=== PATIENT | male | born 1975 | race Caucasian/White ===

== ENCOUNTER 2016-10-20 13:34 | Inpatient (IN) ==
--- NOTE | 2016-10-20 14:29 | Diag Imaging Result Document ---
PROCEDURE NAME: FOOT COMPLETE RIGHT - 10/20/2016 RIGHT FOOT THREE VIEWS: FINDINGS: There is severe injury to the midfoot. The distal tarsal bones are all dislocated laterally from the proximal tarsal bones. There are multiple tiny bone fragments arising from the tarsal bones. No fractures to the metatarsals or phalanges. IMPRESSION: Multiple fractures with multiple fragments arising from the tarsal bones with dislocation of the distal tarsal bones from the proximal tarsal bones.
[2016-10-20] MEDS ORDERED: ZOFRAN IM ONE (15:22)
[2016-10-20] MEDS ORDERED: MORPHINE IM ONE (15:22)
--- NOTE | 2016-10-20 15:28 | PROVIDER DOCUMENTATION ---
HPI-Musculoskeletal Pain/Inj - GENERAL Chief Complaint: Extremity Injury Stated Complaint: POSS BROKE FOOT Time Seen by Provider: 10/20/16 15:18 Source: patient - HX OF PRESENT ILLNESS-MUSKULOSKELTAL Nature of Presenting Problem: 41 yo male presents to ER with c/o injury to right foot. 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 Quality of Pain: reports: aching, throbbing Severity in ED: severe Onset/Duration: just prior to arrival Timing: still present Modifying Factors: improves with: movement (worsens), palpation (worsens) Any recent injury?: Yes Locality of Occurance: Home Similar Symptoms Previously?: No Recently seen or treated by another doctor?: No - LOWER EXTREMITY PAIN/INJURY Lower Extremities Pain: foot: right Context / Method of Injury: reports: direct blow Associated Symptoms: reports: numbness in legs/feet, tingling in legs/feet Review of Systems - Adult - REVIEW OF SYSTEMS - ADULT Constitutional: reports: no symptoms reported Eyes: reports: no symptoms reported Ears, Nose, Mouth & Throat: reports: no symptoms reported Cardiovascular: reports: no symptoms reported Respiratory: reports: no symptoms reported Gastrointestinal: reports: no symptoms reported Genitourinary: reports: no symptoms reported Musculoskeletal: reports: see HPI, bone pain, joint pain Integumentary: reports: no symptoms reported Neurological: reports: no symptoms reported Psychiatric: reports: no symptoms reported Endocrine: reports: no symptoms reported Hematologic/Lymphatic: reports: no symptoms reported Allergic/Immunologic: reports: no symptoms reported All Other Systems: Reviewed and Negative Past History - Adult - PAST MEDICAL HISTORY-ADULT Review of Records: reports: Old Records Reviewed, Nursing Assessment Review, Medications Reviewed, Social history reviewed & non-contributory. Major Childhood Illnesses: reports: denies history Cardiovascular: reports: denies history Respiratory: reports: denies history Gastrointestinal: reports: denies history Obstetrical/Gynecological: reports: denies history Genitourinary: reports: denies history Musculoskeletal: reports: denies history Neurological: reports: denies history Endocrine/Immune: reports: denies history Other Conditions: reports: denies history - PRIOR SURGERIES/PROCEDURES Surgical/Procedure History: reports: appendectomy - IMMUNIZATION STATUS Childhood Immunizations: See Nurse Assessment Flu Vaccine: See Nurse Assessment - FAMILY HISTORY Family History: reviewed, not pertinent - SOCIAL HISTORY Smoking: denies, non-smoker Alcohol Use Frequency: once a week (on weekends) Living Situation: family Physical Exam-Injury Related - Physical Exam-Injury Related Initial Vital Signs Reviewed: Yes General Appearance: appears well, alert, no apparent distress Eyes: PERRL/EOMI Head, Ears, Nose, Mouth & Throat: normocephalic/atraumatic Respiratory: no respiratory distress Cardiovascular: normal peripheral pulses Peripheral Pulses: dorsalis-pedis (R): 2+ Extremity: deformity (right foot), swelling (right foot), tenderness (right foot ) Integumentary: ecchymosis Neurologic: grossly normal Psych/Mental Status: normal mood/affect, normal thought content, normal thought process, oriented x 3 - Glascow Coma Score Best Eye Response ([place]): (4) open spontaneously Best Verbal Response ([place]): (5) oriented Best Motor Response ([place]): (6) obeys commands [place] Total: 15 Progress - PLAN OF CARE/RESULTS Progress/Plan/Lab Results: Vital Signs - 8 hr 10/20/16 13:50 10/20/16 15:23 Temperature 98.3 F Pulse Rate 77 76 Respiratory Rate 16 15 Blood Pressure 146/101 144/100 O2 Sat by Pulse Oximetry 97 98 Orders Category Date Time Status Admit - [facility] Routine AdmDCTranf 10/20/16 16:01 Ordered Activity - Strict Bedrest ORDERED Care 10/20/16 16:01 Active Saline Loc DIRECTED Care 10/20/16 16:01 Active Vital Signs Order ROUTINE Care 10/20/16 16:01 Active NPO Diet 10/20/16 16:04 Active FOOT COMPLETE RIGHT [RAD] Stat Exams 10/20/16 13:56 Completed 0.9% Sodium Chloride Inj [Ns] 1,000 ml Med 10/20/16 16:01 Active IV 100 mls/hr Morphine Med 10/20/16 15:22 Discontinued 4 mg IM NOW ONE Ondansetron [Zofran] Med 10/20/16 15:22 Discontinued 4 mg IM NOW ONE Transfer/Admit Order [TRANSFER] Routine Transfer 10/20/16 16:01 Completed 1545-Dr. Banegas called back and states that he consulted Dr. Garsia who said that he will require multiple surgeries and long recovery process. Dr. Banegas states that patient could stay here or be transferred to . up to patient. 1600-Discussed options with patient; he would like to stay here. Called Dr. Banegas back and notified of decision; he states that he plans to perform surgery this afternoon. - XRAY 1 XRAY: Right XRAY Study: Foot Impression: Abnormal (multiple fractures w/multiple fragments arising from the tarsal bones with dislocation of the distal tarsal bones from the proximal tarsal bones) XRAY Interpretation: Interpreted by Dr. Acevedo - CONSULTS/PCP/HOSPITALIST Notification #1 *Consult/PCP/Hospitalist*: Dr. 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 Gonzalez Time Discussed: 16:05 ( Hospitalist at ) Reason/Comments: keep NPO Consult Disposition: Admit Departure - Departure Time of Disposition Decision: 15:30 DIAGNOSIS: Foot fracture, right Qualifiers: Encounter type: initial encounter Fracture type: closed Qualified Code(s): S92.901A - Unspecified fracture of right foot, initial encounter for closed fracture Right foot injury Qualifiers: Encounter type: initial encounter Qualified Code(s): S99.921A - Unspecified injury of right foot, initial encounter Disposition: ADMITTED INPATIENT 09 Certified Medical Emergency: Emergent Condition: Fair
[2016-10-20] MEDS ORDERED: ZOFRAN IV PRN (16:40)
--- NOTE | 2016-10-20 17:15 | HISTORY AND PHYSICAL ---
CHIEF COMPLAINT: Foot pain. HISTORY OF PRESENT ILLNESS: This patient is a 41-year-old male who has no current medical active problems. He was cutting wood with his father and a large oak tree rolled over on his foot, he began having immediate pain. They were able to get the tree off his foot but he was unable walk before he came to the ER. ALLERGIES: No known drug allergies. MEDICATIONS: None. PAST MEDICAL HISTORY: No current active medical problems. REVIEW OF SYSTEMS: Denies any chest pain, palpitations. Denies any fevers, chills, denies any dysuria, frequency urgency, denies any hesitancy, denies skin rashes, weight loss or weight gain. FAMILY HISTORY: Noncontributory. SOCIAL HISTORY: Patient does not smoke or drink. Does not use any other illicit substances. He currently is employed, does not have a primary care physician. PHYSICAL EXAM: VITAL SIGNS: Temperature 98.3 degrees, pulse 77, respiratory 16, BP 144/101, saturations 98% on room air. GENERAL: Patient is awake, alert, oriented, pleasant to talk with male who is currently in no distress. Notes his pain is tolerable in his foot. HEENT: Normocephalic, atraumatic. HAVEN. NECK: Supple. CV: Regular rate. CHEST: Relatively clear, nonlabored, no wheezing. ABDOMEN: Soft nondistended, nontender. EXTREMITIES: Moves all extremities well. He has good distal pulses from his fracture. NEURO: No focal neurological changes. SKIN: Warm and dry. No rashes. LABS: Currently pending. These were not drawn in the ER. ASSESSMENT: 1. Multiple fractures of the tarsal bones and dislocation the distal tarsal bone. 2. Hypertension in a patient with no previous history of hypertension although he does not check his blood pressure at home with any regularity. 3. Pain control. PLAN: Will continue to watch patient's blood pressure, will treat symptomatically for pain, will admit to the hospital, consult ortho Dr. Banegas for a surgical opinion. cc: Johann Gonzalez MD
[2016-10-20] MEDS ORDERED: KEFZOL 1 GM/D5W 1 GM/50 ML IVPB IV ONE (17:48)
--- NOTE | 2016-10-20 18:21 | CONSULTATION ---
DATE OF CONSULTATION: 10/20/2016 CHIEF COMPLAINT: Right foot fracture-dislocation. HISTORY: Patient was working with some logs today when a large log rolled over on to his foot. He was found to have a fracture-dislocation of the midfoot. He was evaluated in [place] emergency department, counseled about the findings. After discussing the risks and benefits, the patient has been transferred to [facility] for closed reduction and percutaneous pinning. PAST MEDICAL HISTORY: None reported. PAST SURGICAL HISTORY: None. ALLERGIES: None. HOME MEDICATIONS: None. SOCIAL HISTORY: Social history does not smoke. 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 REVIEW OF SYSTEMS: He denies recent cold, cough, fevers, chills, chest pain, shortness of breath, dysuria, rash or other acute illness. EXAM: General: Pleasant male who is in no distress at my exam. HEENT: Conjunctivae pink. Mucous membranes are moist. Neck: Supple without JVD. Heart: Regular with a controlled rate. Lungs: His respirations are nonlabored. Abdomen: Soft and nontender. Extremities: Reveal right lower extremity with soft tissue swelling graded as moderate. There is no open fracture. Pulses are palpable. His toes were well perfused. No sign of acute compartment syndrome is noted. There is minimal pain to the ankle and calf area or knee area on the right lower extremity. Neurological: He is alert, oriented. ASSESSMENT AND PLAN: Right foot fracture-dislocation. I discussed the case with Dr. Moise Pinedo who is a foot and ankle specialist. We will plan for closed reduction and possible percutaneous pinning tonight. Place in a well-padded splint, elevate. Will observe him over the next day and a half for compartment syndrome of the foot. Keep him nonweightbearing. Dr. Pinedo will see him on Saturday and discuss more definitive plans with him from that point forward. I have explained to Mr. Long this is very serious injury. I have explained to him that these types of injuries likely require multiple surgeries. He could ultimately end up with a fusion. I explained to him that there is a risk of infection, blood clots, compartment syndrome, nonunion, limb ischemia, chronic gait disturbance, chronic pain. He understands there are other orthopedic, other medical and other anesthesia risks associated with surgery and we will plan to proceed with closed reduction, possible percutaneous pinning. cc: Yifan Banegas DO
[2016-10-20 18:23] LABS: HEMATOCRIT 44.5 % (42.0-52.0); HEMOGLOBIN 14.9 g/dL (14.0-18.0); MCH 31.8 PG (27-31); MCHC 33.5 g/dL (33-37); MCV 94.9 FL (81-99); MPV 11.2 FL (7.4-10.4); RBC 4.69 XMIL (4.7-6.1)
[2016-10-20] MEDS: NS 1,000 ML IV ONE ×2 (18:28→20:05)
[2016-10-20 18:31] LABS: INR 0.97; PROTIME 10.2 Seconds (9.2-11.7)
[2016-10-20 18:37] LABS: AGAP 14; ALBUMIN 4.2 g/dL (3.5-5.0); ALKALINE PHOSPHATASE 32 U/L (32-122); BUN 15 mg/dL (8-22); CALCIUM 8.3 mg/dL (8.8-10.2); CHLORIDE 99 mmol/L (98-107); COSMO 283; GOT 20 U/L (10-34); GPT 19 U/L (10-44); POTASSIUM 3.9 mmol/L (3.5-5.1); SODIUM 140 mmol/L (136-145); TCO2 27 mmol/L (25-35); TOTAL BILIRUBIN 0.53 mg/dL (0.20-1.00); TOTAL PROTEIN 7.4 g/dL (6.3-8.3)
[2016-10-20 18:56] LABS: CK INDEX 1.2 (0.0-2.5); CK-MB 3.7 ng/mL (0.0-5.0)
[2016-10-20] MEDS ORDERED: DEMEROL ONE (19:17)
[2016-10-20] MEDS ORDERED: DIPRIVAN 1% ONE (19:28)
--- NOTE | 2016-10-20 19:33 | OPERATIVE NOTE ---
PROCEDURE DATE: 10/20/2016 PREOP DIAGNOSIS: Right midfoot fracture dislocation. POSTOP DIAGNOSIS: Right midfoot fracture dislocation. PROCEDURE: Right midfoot closed reduction, application of a short-leg splint. SURGEON: Dr. Venkat Banegas. ANESTHESIA: General. IV FLUIDS: Lactated Ringer's. ESTIMATED BLOOD LOSS: None. COMPLICATION: None. BRIEF HISTORY: Patient who had a log roll over on his foot today with immediate injury and pain, inability to ambulate. He was seen at [facility] where he was found to have a midfoot fracture dislocation. After the patient was counseled extensively about the risks, benefits, and options and indications of a closed reduction, possible percutaneous pinning and need for additional surgeries, patient understood and wished to proceed. PROCEDURE IN DETAIL: The patient was taken to the operating room where a time-out sight verification procedure was performed. The right foot was identified as the site for surgery. No prep or drape was required. Once adequate anesthesia was achieved, traction and manipulation of the midfoot was performed. There was palpable reduction of the joint. C-arm x-ray was used to confirm the reduction. The foot was then held in place and a well-padded posterior splint was applied. The fracture remained stable. It was x-rayed post splint placement. It remained reduced. Patient was awakened and taken to recovery stable condition. Sponge, needle count correct x2. The patient tolerated procedure well. No complications. cc: Yifan Banegas DO
[2016-10-20] MEDS ORDERED: NS 1,000 ML ONE (19:43)
[2016-10-20] MEDS: MORPHINE IV PRN ×3 (20:11→23:47)
[2016-10-20] MEDS ORDERED: TORADOL IV SCH (21:30)
[2016-10-20] MEDS ORDERED: TORADOL IV PRN (23:08)
[2016-10-21] MEDS: MORPHINE IV PRN ×3 (01:56→06:04)
[2016-10-21] MEDS: DILAUDID IV PRN (11:02)
--- NOTE | 2016-10-21 14:01 | PROGRESS NOTE ---
DATE: 10/21/2016 SUBJECTIVE: Patient notes the pain in his foot that is controllable with his current medications. Denies any other complaints. OBJECTIVE: Vital signs: Temperature 98, pulse 50, respiratory 16, BP 138/79 to 182/93, saturation 97% on room air. General: Patient is awake, alert, oriented. He is currently in no respiratory distress. He is pleasant to talk with. Speech is regular. Memory is intact. Neck: Supple. CV: Regular rate. Chest: Relatively clear. Extremities: Moves all extremities well with the exception of the right lower extremity which currently is in an immobilization cast. ASSESSMENT AND PLAN: 1. Hypertension. Discussed with the patient that I do expect that he has high blood pressure. Although his major spikes were secondary to the pain, he certainly needs to continue to follow this up as an outpatient. Will not start medications currently. 2. Mild fractures of the metatarsal bones and dislocation of the distal tarsal bone. This has been surgically repaired and Dr. Banegas. He will continue to follow. Dr. Pinedo will see him in the a.m. for further decision on surgical intervention. cc: Johann Gonzalez MD
[2016-10-22] MEDS ORDERED: DECADRON ONE (10:19)
[2016-10-22] MEDS ORDERED: ANESTHESIA PB SET 88 IN 5742 ONE (10:19)
[2016-10-22] MEDS ORDERED: XYLOCAINE-MPF 2% ONE (10:19)
[2016-10-22] MEDS ORDERED: LR 1,000 ML ONE (10:19)
[2016-10-22] MEDS ORDERED: LABETALOL (DOSE) ONE (10:19)
[2016-10-22] MEDS ORDERED: ZOFRAN ONE (10:19)
[2016-10-22] MEDS: DILAUDID IV PRN (10:40)
--- NOTE | 2016-10-22 10:57 | Diag Imaging Result Document ---
PROCEDURE NAME: KONSTANTIN BAPTISTE W/O CONTRAST - 10/22/[address] dose reduction protocol was used. COMPARISON: X-rays from 10/20/2016. FINDINGS: There are severe, displaced fractures throughout the foot. The ankle and the talus appear intact. There is displaced fracture of the anterior process of the talus with subluxation and near dislocation of the calcaneocuboid joint. There is severe comminuted fracture of the lateral pole of the navicular. There is also minimally displaced fracture of the lateral cuneiform bone. There is near complete dislocation of the scaphoid-cuneiform joints. The cuneiforms are located laterally to their expected location, as is the cuboid. The metatarsals and phalanges appear intact. IMPRESSION: Fracture-dislocation of the foot, with essentially complete disruption of the mid tarsal joint. [facility]
[2016-10-22 11:25] VITALS: BP 152/81
--- NOTE | 2016-10-22 11:34 | PROGRESS NOTE ---
DATE: 10/22/2016 SUBJECTIVE: Mr. Long is lying in bed this morning. Pain is under control as far as the foot is concerned. OBJECTIVE: Right lower extremity exam: He has a splint that is clean, dry, and intact. He has good capillary refill to the toes. He has good sensation to the toes as well. A CT scan was reviewed which shows still subluxation of the midfoot through his fracture zone, lateral navicular fracture, and CC joint is subluxed as well and he has an anterior process calcaneus fracture. ASSESSMENT: Right midfoot dislocation status post closed reduction with multiple midfoot fractures. PLAN: I discussed with Mr. Long today that he will require some definitive fixation. I probably would wait until about that way we can get a little bit more swelling down. I know he is still just a little bit subluxed but he is not dislocated at this point. His pain is under control so will plan on doing this this . I will probably end up doing external fixation both medially and laterally and then either percutaneous or K-wire fixation and let him heal in. I am okay with him being discharged today and I would like to see him in my clinic this Saturday10/24/2016; that will be the day before we operate. cc: Moise Pinedo MD
--- NOTE | 2016-10-23 14:54 | Diag Imaging Result Document ---
PROCEDURE NAME: CHEST-2 VIEWS - 10/20/2016 SEATED AP AND LATERAL RADIOGRAPH OF THE CHEST: COMPARISON: None available. FINDINGS: Inspiration is suboptimal. The lungs are grossly clear. There is no definite pleural fluid collection. Cardiac silhouette and central vasculature are grossly unremarkable. IMPRESSION: Poor inspiration, but no definite acute pathology.
--- NOTE | 2016-11-03 19:00 | DISCHARGE SUMMARY ---
ADMISSION DATE: 10/20/2016 DISCHARGE DATE: 10/22/2016 FINAL DISCHARGE DIAGNOSES: 1. Right midfoot dislocation status post closed reduction with multiple midfoot fractures. 2. Hypertension. CONSULTATIONS REQUESTED DURING THIS HOSPITAL STAY: Orthopedic consultation with Dr. Jovel. PROCEDURES PERFORMED DURING THIS HOSPITAL STAY: Right midfoot closed reduction with application of a short-leg splint. HOSPITAL COURSE: Mr. Long is a 41-year-old male with a history of hypertension who presented to the ER after a log rolled over his right foot resulting in severe pain. Upon arrival to the ER a foot x-ray was done that revealed multiple fractures with multiple fragments arising from the tarsal bone as well as dislocation. Orthopedic Surgery was consulted and the patient was taken to the OR that same day at which time the patient underwent a right midfoot closed reduction. The patient was noted to have high blood pressure and was started on Norvasc. He was seen again by the Orthopedic surgeon who cleared him for discharge home with close followup in the orthopedic clinic. The patient was cleared for discharge home on 10/22/2016. DISCHARGE MEDICATIONS: 1. Norvasc 10 mg p.o. daily. 2. Mereta 5/325, 1 tab oral every 4 hours p.r.n. for pain. DISCHARGE DIET: Low-sodium diet. ACTIVITY: As tolerated. FOLLOWUP INSTRUCTIONS: The patient will need to follow up with Dr. Pinedo as scheduled by the Orthopedic Clinic. cc: Summer Andre MD
== END 2016-10-22 13:48 | disposition home or self-care (01) ==
LOC: P.ED 13:34 → SUATTDRO 16:30 → 4N 16:30
PROVIDERS: ATTEND Internal Medicine

== ENCOUNTER 2019-08-16 10:37 | Inpatient (IN) ==
[2019-08-16] MEDS ORDERED: ASPIRIN PO ONE (10:49)
[2019-08-16] MEDS ORDERED: LOVENOX 1 MG/KG SUBQ ONE (11:03)
[2019-08-16] MEDS ORDERED: CARDIZEM IV ONE (11:03)
[2019-08-16 11:15] LABS: BASO# 0.05 X1000 (0.0-0.2); BASO% 0.6 % (0.0-0.8); EOS# 0.24 X1000 (0.0-0.7); EOS% 2.9 % (0.0-10.0); HEMATOCRIT 45.3 % (42.0-52.0); HEMOGLOBIN 15.5 g/dL (14.0-18.0); IMM GRAN# 0.03 X1000 (0.0-0.04); IMM GRAN% 0.4 % (0.0-0.5); LYMPH# 1.01 X1000 (1.2-3.4); LYMPH% 12.1 % (20.5-51.1); MCH 32.2 PG (27-31); MCHC 34.2 g/dL (33-37); MCV 94.2 FL (81-99); MONO# 1.14 X1000 (0.11-0.59); MONO% 13.7 % (1.7-9.3); MPV 11.6 FL (7.4-10.4); NEUT# 5.85 X1000 (1.4-6.5); NEUT% 70.3 % (42.2-75.2); PLT 232 X1000 (130-400); RBC 4.81 XMIL (4.7-6.1); RDW 12.9 % (11.5-14.5); WBC 8.32 X1000 (4.8-10.8)
[2019-08-16 11:25] LABS: INR 1.19; PROTIME 15.7 Seconds (11.0-16.0)
[2019-08-16 11:26] LABS: PTT 20.4 Seconds (22.3-41.8)
--- NOTE | 2019-08-16 11:39 | Diag Imaging Result Doc PS360 ---
EXAM: CHEST-2 VIEWS 08/16/2019 HISTORY: tachycardia sob TECHNIQUE: PA and lateral chest COMMENT: There is some pleural fluid posteriorly on the right. There is ill-defined opacity in the infrahilar region of the right lower lobe. This is slightly worse than on 10/20/2016. The heart size is slightly enlarged and there is increased pulmonary vascularity. IMPRESSION: Right pleural effusion. Minimal pulmonary edema. Electronically signed by Warren Recinos 08/16/2019 11:37 AM
[2019-08-16 11:40] LABS: ESTIMATED GFR > 60
[2019-08-16] MEDS: CARDIZEM 100 MG/NS 100 MG/100 ML IVPB IV SCH ×2 (11:47→18:45)
[2019-08-16 11:49] LABS: AGAP 18; ALBUMIN 3.9 g/dL (3.5-5.0); ALKALINE PHOSPHATASE 95 U/L (32-122); BUN 12 mg/dL (8-22); CALCIUM 8.8 mg/dL (8.8-10.2); CHLORIDE 97 mmol/L (98-107); CK PROFILE 191 U/L (24-204); COSMO 282; CREATININE 0.6 mg/dL (0.7-1.2); GLUCOSE 275 mg/dL (70-104); GOT 53 U/L (10-34); GPT 30 U/L (10-44); POTASSIUM 4.4 mmol/L (3.5-5.1); SODIUM 136 mmol/L (136-145); TCO2 22 mmol/L (25-35); TOTAL PROTEIN 7.2 g/dL (6.3-8.3)
[2019-08-16 11:51] LABS: MAGNESIUM 0.9 mg/dL (1.5-2.7)
[2019-08-16] MEDS ORDERED: MAGNESIUM SULFATE 2 GM/S.W.I. 2 GM/50 ML IVPB IV ONE (11:52)
--- NOTE | 2019-08-16 12:04 | EKG Report ---
Test Performed on : 08/16/2019 10:55:34 AM Test Reason : tachycardia sob Blood Pressure : / mmHG Vent. Rate : 152 BPM Atrial Rate : 097 BPM P-R Int : 000 ms QRS Dur : 084 ms QT Int : 306 ms P-R-T Axes : 000 265 092 degrees QTc Int : 486 ms Atrial fibrillation. with rapid ventricular response. with premature ventricular or aberrantly conduc mana complexes. Right superior axis deviation Anterior infarct , age undetermined Abnormal ECG No previous ECGs available Unconfirmed Result
[2019-08-16 12:53] LABS: UR AMPHETAMINES QUAL NONE DETECTED (NONE DETECT); UR BARBITUATES QUAL NONE DETECTED (NONE DETECT); UR BENZODIAZEPIN QUAL NONE DETECTED (NONE DETECT); UR CANNABINOIDS QUAL NONE DETECTED (NONE DETECT); UR COCAINE QUAL NONE DETECTED (NONE DETECT); UR METHADONE QUAL NONE DETECTED (NONE DETECT); UR METHAMPHETAMINE QUAL NONE DETECTED (NONE DETECT); UR OPIATES QUAL NONE DETECTED (NONE DETECT); UR OXYCODONE QUAL NONE DETECTED (NONE DETECT); UR PCP QUAL NONE DETECTED (NONE DETECT); UR PROPOXYPHENE QUAL NONE DETECTED (NONE DETECT); UR TCA QUAL NONE DETECTED (NONE DETECT)
--- NOTE | 2019-08-16 13:12 | Diag Imaging Result Doc PS360 ---
EXAM: CT THORAX W/CONTRAST 08/16/2019 HISTORY: RLL mass TECHNIQUE: This exam was performed using automated exposure control, adjustment of mA or kV according to patient size, and/or use of iterative reconstruction technique. COMMENT: There are no previous studies available for comparison. There is some residual thymic tissue in the anterior mediastinum. There is subcarinal adenopathy. There is a right pleural effusion. There is ascites. The spleen is not enlarged. The liver is somewhat nodular in contour and the possibility of cirrhosis cannot be excluded. There is some compressive atelectasis in the right lower lobe. There is a 10 mm pleural-based nodule in the inferior medial right middle lobe on image 63. There is some patchy groundglass opacity in the right upper lobe. There are calcified granulomata in the superior segment of the left lower lobe. The regional skeleton is intact. IMPRESSION: 1. Right pleural effusion and ascites. 2. Cirrhosis. 3. Nonspecific pulmonary nodule in the right middle lobe. Minimal pneumonia in the right upper lobe. Electronically signed by Warren Recinos 08/16/2019 1:10 PM
--- NOTE | 2019-08-16 13:22 | PROVIDER DOCUMENTATION ---
This chart was entered by Khushboo Pryor Scribe, acting as scribe for Catalino Dunbar MD. HPI-Abdominal Pain/GI Problem - General Chief Complaint: Shortness of Breath Stated Complaint: ABD SWOLLEN / SOB Time Seen by Provider: 08/16/19 10:46 Source: patient Allergies/Adverse Reactions: Patient Allergies Allergy/AdvReac Type Severity Reaction Status Date / Time No Known Allergies Allergy Verified 12/07/16 10:08 - History of Present Illness-ABD Nature of Presenting Problems: Pt is a 44 yom who presents to the ED with a cc of swollen abd. Reports bloating of abd for 1 week. reports cough and intermittent sob. denies any fever, palpitations, or edema. reports alcohol use. Pt is tachy in ER. Abdominal Pain Onset Location: reports: generalized abdomen Pain Radiation: reports: no radiation Quality of Pain: reports: none Onset/Duration: reports: 1 week ago Timing: reports: still present Activities at Onset: reports: none Exposure to sick contacts?: No Modifying Factors: improves with: nothing Associated Symptoms: reports: cough, nausea ("gagging"), shortness of breath (intermittent) Last BM: unsure Similar Symptoms Previously?: Yes Recently seen or treated by another doctor?: No Review of Systems - Adult - REVIEW OF SYSTEMS - ADULT Constitutional: reports: no symptoms reported Eyes: reports: no symptoms reported Ears, Nose, Mouth & Throat: reports: no symptoms reported Cardiovascular: reports: no symptoms reported Respiratory: reports: see HPI, cough, shortness of breath (intermittent) Gastrointestinal: reports: see HPI, nausea ("gagging"), other (bloating) Genitourinary: reports: no symptoms reported Musculoskeletal: reports: no symptoms reported Integumentary: reports: no symptoms reported Neurological: reports: no symptoms reported Psychiatric: reports: no symptoms reported Endocrine: reports: no symptoms reported Hematologic/Lymphatic: reports: no symptoms reported Allergic/Immunologic: reports: no symptoms reported All Other Systems: Reviewed and Negative Past History - Adult - PAST MEDICAL HISTORY-ADULT Review of Records: reports: Old Records Reviewed, Nursing Assessment Review, Medications Reviewed, Social history reviewed & non-contributory. Major Childhood Illnesses: reports: denies history Cardiovascular: reports: denies history Respiratory: reports: denies history Gastrointestinal: reports: denies history Obstetrical/Gynecological: reports: denies history Genitourinary: reports: denies history Musculoskeletal: reports: denies history Neurological: reports: denies history Endocrine/Immune: reports: denies history Other Conditions: reports: denies history - PRIOR SURGERIES/PROCEDURES Surgical/Procedure History: reports: appendectomy - IMMUNIZATION STATUS Childhood Immunizations: See Nurse Assessment Flu Vaccine: See Nurse Assessment - FAMILY HISTORY Family History: reviewed, not pertinent - SOCIAL HISTORY Smoking: non-smoker Alcohol Use Frequency: every day Physical Exam-General - PHYSICAL EXAM-ADULT Initial Vital Signs Reviewed: No - CONSTITUTIONAL General Appearance: alert - EYES Eyes: pink conjunctivae - HEAD, EARS, NOSE, MOUTH & THROAT HENMT: normocephalic/atraumatic, moist mucous membranes - RESPIRATORY Respiratory: chest non-tender, lungs clear - CARDIOVASCULAR Cardiovascular: normal peripheral pulses, tachycardia. negative: regular rate, rhythm - GASTROINTESTINAL (ABDOMEN) Abdominal Exam: non tender, soft, distended (slight) - MUSCULOSKELETAL Extremity: normal range of motion, non-tender, normal inspection, no pedal edema - SKIN Integumentary: normal color, warm/dry - PSYCHIATRIC Psych/Mental Status: normal mood/affect, normal thought content, normal thought process, oriented x 3 Progress - PLAN OF CARE/RESULTS Progress/Plan/Lab Results: Vital Signs - 8 hr 08/16/19 10:41 Temperature 98.5 F Pulse Rate 149 H Respiratory Rate 20 Blood Pressure 142/99 O2 Sat by Pulse Oximetry 95 Orders Category Date Time Status Cardiac Monitoring DIRECTED Care 08/16/19 10:49 Active Oxygen Therapy- ED Nursing DIRECTED Care 08/16/19 10:49 Active Saline Loc NOW Care 08/16/19 10:49 Active CHEST-2 VIEWS [RAD] Stat Exams 08/16/19 10:49 Ordered CBC WITH ELECTRONIC DIFF [HEME] Stat Lab 08/16/19 11:01 Ordered CK PROFILE [SP CHEM] Stat Lab 08/16/19 11:01 Ordered COMPREHENSIVE METABOLIC PANEL [CHEM] Stat Lab 08/16/19 11:01 Ordered PRO B-NATRIURETIC PEPTIDE Stat Lab 08/16/19 11:01 Ordered PROTIME WITH INR [COAG] Stat Lab 08/16/19 11:01 Ordered PTT [COAG] Stat Lab 08/16/19 11:01 Ordered TROPONIN T HIGH SENSITIVITY Stat Lab 08/16/19 11:01 Ordered Aspirin Med 08/16/19 10:49 Discontinued 325 mg PO NOW ONE CP/SOB/Palp >45 yrs of Age Stat Oth 08/16/19 10:49 Ordered EKG [EKG] Stat Ther 08/16/19 10:49 Ordered Result Diagrams: 08/16/19 11:00 08/16/19 11:00 - EKG 1 Time of EKG reading by physician:: 10:57 EKG Read and Signed by:: Catalino Dunbar EKG Interpretation (*Must complete 3 of following elements*): Abnormal (anterior infarct, age undetermined) Rate: 152 Rhythm: AFIB w/ RVR or ACC [place]: right (superior axis deviation) QRS: normal ST Wave: normal Prior EKG Comparison: no prior EKG - XRAY 1 XRAY: Bilateral XRAY Study: Chest Impression: Abnormal, See EMR Report (EXAM: CHEST-2 VIEWS 08/16/2019 HISTORY: tachycardia sob TECHNIQUE: PA and lateral chest COMMENT: There is some pleural fluid posteriorly on the right. There is ill-defined opacity in the infrahilar region of the right lower lobe. This is slightly worse than on 10/20/2016. The heart size is slightly enlarged and there is increased pulmonary vascularity. IMPRESSION: Right pleural effusion. Minimal pulmonary edema. Electronically signed by Warren Recinos 08/16/2019 11:37 AM 08/16/19 1137 Interpreting Physician: Warren Recinos MD Dictated Date/Time: 08/16/19 1136 cc: Catalino Dunbar MD; None,PCP) - CONSULTS/PCP/HOSPITALIST Notification #1 *Consult/PCP/Hospitalist*: Snyder Time Discussed: 13:15 Consult Disposition: Will see in ED, Admit Departure - Departure Date of Disposition Decision: 08/16/19 Time of Disposition Decision: 10:50 DIAGNOSIS: Atrial fibrillation with rapid ventricular response, Hypomagnesemia, Pleural effusion, right Cirrhosis Qualifiers: Hepatic cirrhosis type: unspecified hepatic cirrhosis Ascites presence: with ascites Qualified Code(s): K74.60 - Unspecified cirrhosis of liver; R18.8 - Other ascites Ascites Qualifiers: Ascites type: other type Qualified Code(s): R18.8 - Other ascites Disposition: ADMITTED INPATIENT 09 Certified Medical Emergency: Emergent Condition: Good Referrals and Follow-Ups: None,PCP [Primary Care Provider] - - Critical Care Note This patient required my direct & personal management of CC.: Yes Total Time (mins): 35 Critical Care Statement: This patient required my direct personal management to treat or rule out processes, the absence of which, could potentiallly result in sudden, clinically significant life or limb threatening deterioration. Attestation - Physician/ COLE Attestation Patient care was provided by Advanced Practice Provider:: No The physician spent face to face time with patient:: Yes Advanced Practice Provider documentation review:: Supervising physician onsite and consulted in the evaluation and care of this patient. The physician did have a face to face encounter with the patient. This chart was documented by the indicated scribe, (Khushboo Pryor Scribe) and accurately reflects the services I performed and decisions made by me, Catalino Dunbar MD, as attested by the provider's signature.
[2019-08-16] MEDS ORDERED: ZOFRAN IV PRN (14:23)
[2019-08-16] MEDS: NS 1,000 ML IV SCH (14:30)
[2019-08-16] MEDS ORDERED: LOVENOX SUBQ ONE (14:30)
[2019-08-16] MEDS: ROCEPHIN 1 GM in NS 50 ML IV SCH (15:30)
[2019-08-16] MEDS: ZITHROMAX PO SCH (16:27)
--- NOTE | 2019-08-16 21:48 | HISTORY AND PHYSICAL ---
CHIEF COMPLAINT: Abdominal distention, abdominal pain. HPI: This is a 44-year-old gentleman who denies any prior past medical history, who presents to the emergency room complaining of abdominal distention and bloating for a week. He also reports cough and intermittent shortness of breath. He denies any fevers, chills, any nausea, vomiting, any black or bloody vomitus or stools. He does have a history of alcoholism. He does continue to drink daily although at this time he is not forthcoming with the amount he drinks. PAST MEDICAL HISTORY: Hypertension diagnosed a month prior. PAST SURGICAL HISTORY: Right midfoot external fixation with he had closed reduction, percutaneous pinning with left external fixation applied in October 2016 with external fixation removed in December 2016. ALLERGIES: No known drug allergies. SOCIAL HISTORY: He does drink alcohol daily. He denies any tobacco or illicit drug use. HOME MEDICATIONS: A list will be obtained by the nursing staff and once verified will review and restart as appropriate. REVIEW OF SYSTEMS: Discussed with the patient with pertinent positives stated in the HPI. He denied any syncope or dizziness, any palpitations, any chest pain, any vomiting, any diarrhea, constipation, black or bloody vomitus or stools, any hematuria, dysuria, frequency, urgency. PHYSICAL EXAMINATION: GENERAL: This is a 44-year-old gentleman who is sitting on the stretcher in the emergency room in no distress. VITAL SIGNS: Blood pressure is 108/71 with a heart rate of 92, respirations are 17, temperature is 98.5 degrees with O2 saturations 96 to 98 percent. HEENT: Pupils equal, round, react to light. EOMs are intact. Sclerae anicteric. HEENT: Head is normocephalic, atraumatic. Mucous membranes are moist. NECK: Supple with trachea midline. CARDIOVASCULAR: Irregularly irregular rate and rhythm. S1 and S2 are appreciated. Calves are nontender bilateral with peripheral pulses palpable x4 extremities. PULMONARY: Breath sounds are clear with no increased work of breathing noted. Chest rises and falls symmetric respiration. Chest wall is nontender to palpation. GASTROINTESTINAL: Abdomen is soft, it is distended, nontender with bowel sounds in all 4 quadrants. GENITOURINARY: No CVA or suprapubic tenderness. NEUROLOGIC: He is alert and oriented x3. SKIN: Warm and dry. LABS: WBC is 8.3 with hemoglobin 15.5, hematocrit 45.3, platelets of 232,000. INR is 1.19. Sodium 136, potassium 4.4, BUN 12, creatinine 0.6 with a glucose of 275. Magnesium is 0.9 with a total bilirubin of 1.6, AST of 53, ALT 30. Troponin is 22 and repeat is 25. TSH 1.16. Urine drug screen reveals none detected. EKG reveals atrial fibrillation with rapid ventricular response at a rate of 152. CT of the chest revealed right pleural effusion and ascites. The liver is nodular in contour. The possibility of cirrhosis cannot be excluded. Right pneumonia in the right upper lobe with a 10 mm nodule in the right middle lobe. He had some patchy ground-glass opacity in the right upper lobe. ASSESSMENT AND PLAN: 1. Atrial fibrillation with rapid ventricular response. The patient is on Cardizem and rate is controlled. We will transfer him to [facility] for Cardiology following. He will be placed in ICU. 2. Hypomagnesemia. This was replaced in the emergency room. Will recheck magnesium and replete tonight and then again in the morning. Replete as appropriate. 3. Hyperbilirubinemia. 4. Liver cirrhosis with ascites. This is a new diagnosis according to the patient. He will be NPO after midnight. We will check an abdominal ultrasound in the morning and consult Gastroenterology. 5. History of daily alcohol use. Will check a blood alcohol, monitor for any signs and symptoms of withdrawal. 6. Right upper lobe pneumonia. We will obtain blood cultures, antibiotic coverage of Rocephin and azithromycin. 7. 10 mm right middle lobe nodule on CT scan. 8. Hypertension. We will identify his medications and continue as appropriate. 9. Plan was discussed with Dr. Gonzalez. Further treatments pending hospital course. Will do Lovenox 1 mg/kg q.12 hours. Give gentle IV hydration 75 mL an hour. For PPI we will use Prilosec. Dictated by TAIWO Bagley for Johann Gonzalez MD cc: TAIWO Bagley MD
--- NOTE | 2019-08-16 23:23 | HISTORY AND PHYSICAL ---
ADDENDUM: Patient seen and examined by myself. Full note dictated and discussed with nurse practitioner. Patient presented to the hospital with new onset swelling of his abdomen. Notes that it has been going on for approximately a week. Denies any true palpitations. Does have alcohol use. In the ER, he was noted to be in atrial fibrillation RVR with heart rate 140-150. He has been placed on Cardizem. Blood pressures currently are stable. Heart rate is in the upper 90s. The patient also noted to have new onset cirrhosis and right upper lobe pneumonia. We are going to admit him to the hospital, attempt to wean off Cardizem as possible. We will ask GI to evaluate his cirrhosis. Further orders as needed. cc: Johann Gonzalez MD
[2019-08-17] MEDS ORDERED: LOVENOX SUBQ SCH (03:00)
[2019-08-17] MEDS: NS 1,000 ML IV SCH (03:55)
[2019-08-17] MEDS: PRILOSEC PO SCH ×2 (05:23→06:26)
[2019-08-17] MEDS: CARDIZEM 100 MG/NS 100 MG/100 ML IVPB IV SCH (05:23)
[2019-08-17 06:57] LABS: HEMATOCRIT 45.4 % (42.0-52.0); HEMOGLOBIN 14.6 g/dL (14.0-18.0); MCH 30.9 PG (27-31); MCHC 32.2 g/dL (33-37); MCV 96.2 FL (81-99); MPV 10.9 FL (7.4-10.4); RBC 4.72 XMIL (4.7-6.1); RDW 13.3 % (11.5-14.5); WBC 7.33 X1000 (4.8-10.8)
[2019-08-17 07:17] LABS: AGAP 16; ALB/GLOB RATIO 1.2; ALBUMIN 3.6 g/dL (3.5-5.0); ALKALINE PHOSPHATASE 81 U/L (32-122); BUN 14 mg/dL (8-22); CHLORIDE 96 mmol/L (98-107); COSMO 278; CREATININE 0.9 mg/dL (0.7-1.2); ESTIMATED GFR > 60; GLUCOSE 232 mg/dL (70-104); GOT 33 U/L (10-34); GPT 23 U/L (10-44); POTASSIUM 3.9 mmol/L (3.5-5.1); SODIUM 135 mmol/L (136-145); TCO2 23 mmol/L (25-35); TOTAL BILIRUBIN 1.76 mg/dL (0.20-1.00); TOTAL PROTEIN 6.5 g/dL (6.3-8.3)
[2019-08-17] MEDS: ZITHROMAX PO SCH (08:13)
--- NOTE | 2019-08-17 10:16 | Diag Imaging Result Doc PS360 ---
EXAM: US ABDOMEN-COMPLETE INDICATION: cirrhosis COMPARISON: None. FINDINGS: The gallbladder could not be identified by the customer service specialist, possibly because it is contracted. The common bile duct is normal in diameter. The liver echotexture is diffusely increased suggesting hepatic steatosis. No discrete hepatic mass is identified. There is a small amount of ascites tracking around the liver and there is a right pleural effusion. The portal vein is obscured. The pancreas is obscured. The visualized portion of the aorta and IVC are unremarkable. The spleen is unremarkable. The kidneys are grossly unremarkable. IMPRESSION: 1.Nonvisualization of the gallbladder, possibly because it is contracted. 2.Evidence of hepatic steatosis. 3.Small volume ascites and right pleural effusion. Electronically signed by Bryant Conde 08/17/2019 10:14 AM
--- NOTE | 2019-08-17 10:47 | EKG Report ---
Test Performed on : 08/17/2019 10:12:06 AM Test Reason : afib Blood Pressure : / mmHG Vent. Rate : 087 BPM Atrial Rate : 115 BPM P-R Int : 000 ms QRS Dur : 088 ms QT Int : 432 ms P-R-T Axes : 000 018 110 degrees QTc Int : 519 ms Atrial fibrillation. Low voltage QRS T wave abnormality, consider anterolateral ischemia Prolonged QT Abnormal ECG When compared with ECG of 16-AUG-2019 10:55, (Unconfirmed) Vent. rate has decreased BY 65 BPM QRS axis shifted right Inverted T waves have replaced nonspecific T wave abnormality in Anterolateral leads Confirmed by Nilton JOSE, Rob Loomis ([id number]) on 08/17/2019 4:15:44 PM
[2019-08-17] MEDS ORDERED: LOPRESSOR PO ONE (11:59)
--- NOTE | 2019-08-17 12:43 | CONSULTATION ---
DATE OF CONSULTATION: 08/17/2019 IMPRESSION: 1. Atrial fibrillation of unknown duration. The patient has a history of significant daily alcohol use, and atrial fibrillation may potentially be related to this. He also may very well have obstructive sleep apnea. 2. Obesity. 3. Elevated blood pressure in the past. 4. 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 The patient actually presented with a complaint of abdominal swelling, but no cardiovascular symptoms. RECOMMENDATIONS: 1. Continue beta uzma, metoprolol. 2. Although CHADS-VASC score is limited, I favor at least short term anticoagulation. We will initiate Eliquis. 3. ELOISE/cardioversion discussed and considered with the patient. He expressed preference to hold off on this given some potential that atrial fibrillation will go away if he discontinues alcohol use. Therefore, we will follow the patient in the office, and if atrial fibrillation persists, reconsider ELOISE cardioversion. 4. The patient would benefit from screening for obstructive sleep apnea. 5. Cessation of alcohol use strongly advised. HISTORY: This 44-year-old white male with past history of daily alcohol use, consuming 8 to 10 beers daily, and obesity, as well as possible hypertension in the past, was admitted after he presented with complaint of increased abdominal swelling. He was noted to be in atrial fibrillation with elevated heart rate. He is totally unaware of his atrial arrhythmia and denies any chest discomfort or dyspnea or palpitations. He relates he only has been having some increased abdominal swelling without peripheral edema, and this is why came to seek medical evaluation. He has history of some elevated blood pressure in the past and was treated with antihypertensive medications for couple months, but no longer takes blood pressure medications. He does have history of prominent snoring. 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 PAST MEDICAL HISTORY: 1. Obesity. 2. Elevated blood pressure in the past. Patient treated for hypertension for a period of time, but is no longer taking any hypertensive medications. PAST SURGICAL HISTORY: Fracture of right midfoot requiring external fixation after closed reduction. ALLERGIES: He has no known drug allergies. MEDICATIONS: He is on no medications prior to admission. 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 He drinks 8 to 10 beers daily. He does not smoke. He is single. FAMILY HISTORY: Noncontributory. REVIEW OF SYSTEMS: Pulmonary: Noteworthy for prominent snoring, but otherwise negative. Gastrointestinal: Noteworthy for abdominal swelling, but otherwise negative. Constitutional: Negative. Other Systems: The remainder of review of systems negative/noncontributory with 14 total systems reviewed. PHYSICAL EXAMINATION: General: Reveals an obese adult white male in no distress on room air. Vital Signs: Blood pressure 130/92, heart rate 81 and irregular, oxygen saturation 95%. HEENT: Extraocular movements intact. Mucous membranes are moist. Neck: Supple. No jugular venous distention. There are no carotid bruits. Chest: Clear to auscultation bilaterally. Cardiac: Reveals an irregular rate and rhythm without appreciable murmur, rub, or gallop. Abdomen: Soft. Bowel sounds are normal. Extremities: Without edema. Neurologic: Alert and fully oriented. Speech is fluent. Moves all 4 extremities equally well. Skin: Warm and dry. Psychiatric: Reveals mood to be appropriate. PERTINENT DATA: A 12-lead EKG demonstrates atrial fibrillation, low voltage QRS and nonspecific T- wave abnormality. LABORATORY DATA: Includes a white blood cell count of 7.33, hematocrit 45.4, hemoglobin 14.6, platelet count 187,000. Sodium 135, potassium 3.9, chloride 96, carbon dioxide 23. BUN 14, creatinine 0.9, glucose 232, magnesium 1.5, bilirubin 1.76. AST initially 53 with followup AST of 33, ALT initially 30 with followup ALT of 23. Troponin T high sensitivity 25. cc: Codey Booth MD
--- NOTE | 2019-08-17 13:23 | GASTROENTEROLOGY CONSULTATION ---
DATE: 08/17/2019 REASON FOR CONSULTATION: Cirrhosis and ascites. HISTORY OF PRESENT ILLNESS: Mr. Long is a 44-year-old, male with a past medical history of hypertension, who presented to Emergency yesterday morning with complaints of abdominal pain, hurting when he coughs. He described his pain as 3/10 and said it was a sharp pain. He had nausea and vomiting on Saturday morning, and now he c/o of only nausea but not vomiting. His bowel movements are regular. He complained of shortness of breath, but denied any fever or chills. The patient is saying that this has been going on for a week onwards and he felt like his abdomen is getting more and more distended and he feels very tight. He has denied noticing any blood in his stools or blood in his vomit. The patient does have a history of drinking 5 to 6 beers a day, and he takes ibuprofen as and when needed. PAST MEDICAL HISTORY: Hypertension. PAST SURGICAL HISTORY: Appendectomy and right ankle repair. FAMILY HISTORY: Positive for diabetes and emphysema. ALLERGIES: No known drug allergies. SOCIAL HISTORY: The patient is single. He drinks alcohol, but has denied any tobacco or illicit drug use. HOME MEDICATIONS: Leeu-pie-ycbrykb ibuprofen. REVIEW OF SYSTEMS: As per HPI. Otherwise, 12 point review of system is negative. PHYSICAL EXAMINATION: Vital Signs: Temperature 98.2 degrees, pulse 88, respirations 25, blood pressure 114/80, oxygen saturation 91% on room air. The patient's weight is 205 pounds. BMI is 34.2 kg/m2. General: He is alert, oriented x3, in no acute distress. Answering questions appropriately. HEENT: Pale conjunctivae. No icterus. PERRL. Neck: Supple. Lungs: Clear to auscultation. Cardiovascular: Regular rate and rhythm. Abdomen: Firm, distended, obese, tender in the epigastric area. Extremities: No clubbing, no cyanosis, no edema. Pedal pulses 2+ present bilaterally. Neurologic: Alert, oriented x3. Nonfocal. Cranial nerves 2-12 grossly intact. LABORATORY DATA: WBCs 7.33, RBCs 4.72, hemoglobin is 14.6, hematocrit is 45.4, platelet count is 187. PT 15.7, INR is 1.19. Sodium 135, potassium 3.9, chloride 96, carbon dioxide 23, anion gap 16. BUN 14, creatinine is 0.9, glucose is 232, calcium is 8.0. Total bilirubin is 1.76, AST 33, ALT 23, alkaline phosphatase is 81, albumin is 3.6. IMAGING: Abdominal ultrasound has shown nonvisualization of the gallbladder, possibly because it is contracted. Evidence of hepatic steatosis, small volume ascites and right pleural effusion. Chest CT has shown right pleural effusion and ascites, cirrhosis, nonspecific pulmonary nodule in the right middle lobe. Minimal pneumonia in the right upper lobe. Chest x-ray has shown right pleural effusion. Minimal pulmonary edema. IMPRESSION AND PLAN: Cirrhosis Ascites A-fib Hypertension Alcoholism PLAN: Mr. Long is a 44-year-old, male with a history of hypertension. Gastroenterology has been consulted for his cirrhosis and ascites. We have ordered a chronic liver disease workup for the patient. Patient needs to start low sodium diet <2g/24 hours. The patient is currently on Prilosec 40 mg oral daily. He is on Zithromax 500 mg oral daily. The patient can follow us up in 3 to 4 weeks as an outpatient for follow up of chronic Liver disease workup, We will sign off for now. This plan was discussed with Dr. Lawson. Thank you for your cosult. Please call us for any further questions or concerns. Dictated by TAIWO Norton for Gennaro Lawson MD cc: Gennaro Lwason MD I have seen and examined the patient myself and I agree with the above plan of care. Please call with any questions or concerns. MTDD
--- NOTE | 2019-08-17 14:04 | ECHO REPORT ---
ORDER DATE: 08/17/2019 INDICATION: Atrial fib. FINDINGS: 1. The right atrium is enlarged. 2. Mild tricuspid regurgitation. RV systolic pressure of 39. 3. The right ventricle is enlarged with reduction in RV systolic function. 4. Trace pulmonic insufficiency. 5. Severe left atrial enlargement with a volume index of 47. 6. No mitral valve prolapse. There is moderate and possibly severe mitral regurgitation. This is an eccentric jet that is not well seen. 7. The left ventricle appears normal in size with an end-diastolic dimension of 4.8 cm. Normal wall thicknesses with a posterior and interventricular septal wall thickness of 1.0 and 0.9 cm respectively. Severe reduction in LV systolic function. Estimated ejection fraction is in the 15 to 20 percent range with severe global hypokinesis. 8. Aortic valve opens well. There is no evidence of stenosis or insufficiency. 9. Aorta appears normal in visualized segments. 10. There is a very trace predominantly posterior pericardial effusion, as well as a pleural effusion present. 11. The patient appears to be in atrial fibrillation. cc: MD Nino Das MD
[2019-08-17] MEDS: ROCEPHIN 1 GM in NS 50 ML IV SCH (15:43)
[2019-08-17] MEDS ORDERED: COZAAR PO ONE (16:55)
[2019-08-17] MEDS ORDERED: VANCOMYCIN IV PER PHARMACY MISC SCH (17:15)
[2019-08-17] MEDS ORDERED: VANCOMYCIN 2 GM in NS 500 ML IV ONE (18:00)
--- NOTE | 2019-08-17 19:36 | PROGRESS NOTE ---
DATE: 08/17/2019 SUBJECTIVE: I have seen and examined Mr. Long today. Mr. Long is a 44-year-old gentleman who is known to be hypertensive. According to him, he has been told in the past, but he was not on any medication. Presented to [place] because of abdominal distention, was found to be in atrial fibrillation with RVR, and was transferred to [facility] yesterday for higher level of care. I understand in the ER he was found to have heart rate of 140 to 150. This morning, he refers to be doing better. No shortness of breath and no chest pain. The patient's activity level, for the most part, has not changed. OBJECTIVE: Current vital signs: Blood pressure is 114/80, pulse of 88, respiration is 25, temperature is 98.2 degrees, and patient is saturating 95%. General: Mr. Long is a 44-year- old, obese, gentleman. He is in bed. Does not seem to be in any cardiopulmonary distress. HEENT: Mucosa is pink and moist. Anicteric. Acyanotic. Neck: Supple. Positive JVD. Chest: Air entry was bilaterally reduced. I did not hear any crackles or wheezing. Cardiovascular: Irregularly irregular, but rate controlled. No murmurs, no rubs, no gallops. GI: Abdomen was soft. It is distended, but nontender. Bowel sounds present. Extremities: No pedal edema. 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 No focal deficit. LABORATORY DATA: CBC is normal. Chemistry is also reviewed. Sodium is 135. Rest of chemistry is unremarkable. So far, patient's blood cultures 1/2 positive for gram-positive cocci. IMAGING STUDIES: A chest x-ray did show a right pleural effusion and minimal pulmonary edema. A CAT scan of the chest showed right pleural effusion and ascites, cirrhosis, nonspecific nodule, and there was a minimum pneumonia in the right upper lobe. Abdomen ultrasound shows evidence of hepatic steatosis, cirrhotic. ASSESSMENT: 1. Atrial fibrillation of acute onset with rapid ventricular response on presentation. The patient was started on Cardizem at [place]. He is currently rate controlled. He has been transitioned to metoprolol by Cardiology. 2. Severe systolic dysfunction, with ejection fraction of 15% to 20%, associated with severe global hypokinesis. 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 The patient has been advised on alcohol cessation. We started him on thiamine, folate, and multivitamins. Cardiology has also evaluated him. We have also started Mr. Long on losartan as well as spironolactone. 3. Hypertension. The patient has been started on low-dose losartan. 4. Eliquis anticoagulation was started by Cardiology. Obviously, patient has higher cardiovascular score for embolic phenomena. His CHADS/VASc score is at least 2, with 1 for congestive heart failure, 1 for hypertension, and he surely needs to be on a blood thinner. 5. Cirrhosis of the liver noted on CAT scan. The ultrasound, however, just shows hepatic steatosis. We think this is all alcohol induced. The patient has been counseled. GI has also evaluated him. Other possible etiology testing has been ordered. 6. Suspected obstructive sleep apnea. Patient has been advised to follow up with sleep studies. PLAN: In general, I think Mr. Long is fairly stable. He is newly diagnosed with atrial fibrillation with rapid ventricular response, with severe systolic dysfunction, ejection fraction of 15 to 20 percent, also cirrhosis of the liver/hepatic steatosis. We think this is all related to his more than 11 years abuse of alcohol. He has been advised and we started him on vitamins and mineral supplements, and will continue to control all his other comorbidities. Patient is being followed by GI and Cardiology, and will follow up with further recommendations from them. cc: Nino Lagunas MD
[2019-08-17] MEDS: ELIQUIS PO SCH (20:08)
[2019-08-17] MEDS: LASIX PO SCH (20:08)
[2019-08-17] MEDS: LOPRESSOR PO SCH (20:08)
[2019-08-18] MEDS: PRILOSEC PO SCH ×2 (05:54→06:06)
[2019-08-18] MEDS: LOPRESSOR PO SCH ×2 (05:54→12:21)
[2019-08-18 06:54] LABS: INR 1.48; PROTIME 18.2 Seconds (11.0-16.0)
[2019-08-18 07:05] LABS: HEMATOCRIT 49.9 % (42.0-52.0); HEMOGLOBIN 15.7 g/dL (14.0-18.0); MCH 31.2 PG (27-31); MCHC 31.5 g/dL (33-37); MPV 10.7 FL (7.4-10.4); RBC 5.04 XMIL (4.7-6.1); RDW 13.7 % (11.5-14.5); WBC 5.41 X1000 (4.8-10.8)
[2019-08-18 07:43] LABS: ALBUMIN 3.3 g/dL (3.5-5.0); CALCIUM 8.1 mg/dL (8.8-10.2); CREATININE 2.1 mg/dL (0.7-1.2); POTASSIUM 4.6 mmol/L (3.5-5.1); TOTAL BILIRUBIN 1.66 mg/dL (0.20-1.00); TOTAL PROTEIN 6.7 g/dL (6.3-8.3)
[2019-08-18] MEDS: LASIX PO SCH (08:17)
[2019-08-18] MEDS: ELIQUIS PO SCH (08:17)
[2019-08-18] MEDS ORDERED: ALDACTONE PO SCH (09:00)
[2019-08-18] MEDS ORDERED: THERA M PLUS PO SCH (09:00)
[2019-08-18] MEDS ORDERED: VITAMIN B-1 PO SCH (09:00)
[2019-08-18] MEDS ORDERED: COZAAR PO SCH (09:00)
[2019-08-18] MEDS ORDERED: FOLIC ACID PO SCH (09:00)
[2019-08-18] MEDS ORDERED: ZOFRAN IV PRN (10:52)
[2019-08-18 11:36] VITALS: BP 94/78
[2019-08-18] MEDS ORDERED: VANCOMYCIN 1.8 GM in NS 250 ML IV SCH (12:00)
[2019-08-18] MEDS ORDERED: THIAMINE 100 MG, FOLIC ACID 1 MG, M.V.I.-12 10 ML, MAGNESIUM SULFATE 1 GM, POTASSIUM CH... IV SCH ×6 (14:15)
[2019-08-18] MEDS ORDERED: LIBRIUM PO PRN (15:19)
--- NOTE | 2019-08-18 19:29 | PROGRESS NOTE ---
DATE: 08/18/2019 SUBJECTIVE: The patient has no major complaints. OBJECTIVE: Blood pressure is 94/78, heart rate 85, respiratory 18, temperature 97.4 degrees, 97% on room air.Cardiovascular: Regular rate and rhythm. Pulmonary: Bilateral breath sounds clear to auscultation. GI: Soft, nontender, nondistended. Bowel sounds are positive. His head was kind of flushed with plethora. LABS: White count 5, hemoglobin and hematocrit 15, 49, platelets 239,000, INR 1.4. Creatinine has bumped up to 2.1 and was 0.9 previously. AST and ALT have also bumped up 273 and 103. PROBLEM LIST: 1. A new issue today is acute kidney injury in the setting of congestive heart failure. I am going to hold his nephrotoxic drugs. Will check urine electrolytes and he seems to be doing okay. Does not look like there is any obstruction but we will continue to monitor and give gentle hydration because of his issue. He had low dose losartan, we also have to entertain that there may be some renal artery stenosis. 2. Atrial fibrillation. This is stabilized. He is on Cardizem. Cardiology is following. He is being anticoagulated. 3. Congestive heart failure, ejection fraction 15 to 20 percent due to dilated cardiomyopathy not otherwise specified. 4. 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 We will continue to monitor. 5. Disposition. He wants to go home. We discussed it was a possibility as long as his kidney function improved, which we will see how his numbers look tomorrow and then decide about that roasterman. Again, we will have to avoid everything nephrotoxic . 6. Alcohol abuse. We are aware, continue to monitor closely. cc: Bhavin Grant MD
[2019-08-19] MEDS ORDERED: VANCOMYCIN 1,600 MG in NS 250 ML IV SCH (06:00)
[2019-08-19 14:00] LABS: HEPATITIS PROFILE ACUTE SEE COMMENTS
--- NOTE | 2019-09-15 22:30 | DISCHARGE SUMMARY ---
ADMISSION DATE: 08/16/2019 DISCHARGE DATE: 08/18/2019 DISCHARGE DIAGNOSES: 1. Acute kidney injury. 2. Congestive heart failure. 3. Atrial fibrillation. 4. Cirrhosis. 5. The patient left AMA. CONSULTATIONS: Dr. Booth, cardiology. Dr. Lawson, GI. HOSPITAL COURSE: Briefly, patient came in for swelling of his abdomen. He was in atrial fibrillation with rapid ventricular response. He was placed on Cardizem. Imaging revealed concern over possible cirrhosis that was based on the CT. He had a right pleural effusion. He did have a fairly significant history of alcohol abuse. His echocardiogram showed an EF of 15 to 20% and severe MR, so significant heart failure. His abdominal ultrasound showed hepatic steatosis versus cirrhosis. Cardiology was evaluated. Patient recommended metoprolol, anticoagulation. ELOISE possibly if not improved. Cessation of alcohol. GI was consulted. They recommended workup for chronic liver disease, Prilosec, Zithromax. On the day of discharge he was concerned about going home but he had acute kidney injury in the setting of CHF and wanted to go home, but I did not feel he was stable with worsening kidney function with cirrhosis and heart failure, but the patient ended up leaving AMA around 3 p.m. cc: Bhavin Grant MD
== END 2019-08-18 15:28 | disposition left against medical advice (07) | DRG 308 ==
LOC: P.ED 10:37 → SUATTDRO 15:36 → P.EDIPHOLD 15:36 → 2N 22:15
PROVIDERS: ATTEND Internal Medicine